=== PATIENT | female | born 1930 | race Caucasian/White ===

== ENCOUNTER 2017-06-28 18:15 | Emergency (ER) | payer MEDICARE ==
[~2017-06-28] VITALS: Ht 142.2 cm; Wt 62.3 kg
[~2017-06-28 18:15] MED LIST: AMIO200T57 PO; AMLO5TAB PO; APIX5TAB3 PO; CELE200C PO; CEPH500C5 PO; FURO-150 PO; OCUVITE PO; OMEP-84 PO
[2017-06-28 18:44] LABS: BASOPHILS # (AUTO) 0.2 X10'3 (0-0.2); BASOPHILS % (AUTO) 1.2 % (0-1); EOSINOPHILS # (AUTO) 0.5 X10'3 (0-0.9); EOSINOPHILS % (AUTO) 3.2 % (0-6); HEMATOCRIT 40.3 % (35.0-45.0); LYMPHOCYTES # (AUTO) 1.4 X10'3 (1.1-4.8); LYMPHOCYTES % (AUTO) 8.6 % (21-51); MEAN CORPUSCULAR HEMOGLOBIN 22.2 PG (27.0-31.0); MEAN CORPUSCULAR HGB CONC 32.2 % (33.0-36.5); MEAN PLATELET VOLUME 7.8 FL (7.4-10.4); MONOCYTES # (AUTO) 2.9 X10'3 (0-0.9); MONOCYTES % (AUTO) 17.7 % (2-12); NEUTROPHILS # (AUTO) 11.2 X10'3 (1.8-7.7); NEUTROPHILS % (AUTO) 69.3 % (42-75); PLATELET COUNT 467 X10'3 (140-440); RED BLOOD COUNT 5.84 X10'6 (4.20-5.60); RED CELL DISTRIBUTION WIDTH 22.6 % (11.5-14.5); WHITE BLOOD COUNT 16.2 X10'3 (4.5-11.0)
[2017-06-28 18:58] LABS: ALANINE AMINOTRANSFERASE 644 U/L (12-78); ALBUMIN 3.1 G/DL (3.4-5.0); ALBUMIN/GLOBULIN RATIO 0.9 (1.1-1.5); ALKALINE PHOSPHATASE 175 IU/L (46-116); ANION GAP 6 (8-16); ASPARTATE AMINO TRANSFERASE 718 U/L (10-37); BILIRUBIN,TOTAL 1.1 MG/DL (0.1-1.0); BLOOD UREA NITROGEN 17 MG/DL (7-18); BUN/CREATININE RATIO 12.7 (6.6-38.0); CALCIUM 8.7 MG/DL (8.5-10.1); CHLORIDE 91 MMOL/L (99-107); CREATININE 1.34 MG/DL (0.40-0.90); GLUCOSE 104 MG/DL (70-104); POTASSIUM 3.6 MMOL/L (3.5-5.1); SODIUM 126 MMOL/L (135-145); TOTAL CARBON DIOXIDE 29.1 MMOL/L (24-32); TOTAL PROTEIN 6.6 G/DL (6.4-8.2); eGFR 37 ML/MIN
[2017-06-28 20:50] LABS: PLATELET ESTIMATE INCREASED
[2017-06-28 20:51] LABS: ANISOCYTOSIS 3+; HYPOCHROMASIA 2+; LIPASE 291 U/L (73-393); MICROCYTOSIS 2+
[2017-06-28 20:52] LABS: BURR CELLS FEW; ELLIPTOCYTES FEW; SCHISTOCYTES FEW; TEAR DROP CELLS FEW
[2017-06-28 21:21] LABS: CLARITY,URINE Clear (Clear); COLOR,URINE Yellow (Yellow); GLUCOSE, URINE Negative (Neg); KETONES,URINE Negative (Neg); LEUKOCYTE ESTERASE ,URINE Trace (Neg); NITRITES, URINE Negative (Neg); OCCULT BLOOD,URINE Negative (Neg); PH,URINE 5.5 (4.8-8.0); PROTEIN,URINE Negative (Neg)
[2017-06-28 21:24] LABS: UA COLLECTION TYPE VOIDED
[2017-06-28 21:39] LABS: AMORPHOUS URATES 1+; BACTERIA,URINE 1+ /HPF (Neg); MUCUS STRANDS NONE SEEN /LPF (Neg); RBC,URINE NONE SEEN /HPF (0-2); SQUAMOUS EPITHELIAL CELL,UR FEW /LPF (FEW); WBC,URINE 0-4 /HPF (0-4)
[2017-06-28 22:45] VITALS: BP 132/62
== END 2017-06-29 00:21 | disposition left against medical advice (07) ==
LOC: ER 18:17
DX: D72.829 Elevated white blood cell count, unspecified (principal); E87.1 Hypo-osmolality and hyponatremia; L03.115 Cellulitis of right lower limb; R94.5 Abnormal results of liver function studies; R10.9 Unspecified abdominal pain; I48.91 Unspecified atrial fibrillation; I11.0 Hypertensive heart disease with heart failure; I50.9 Heart failure, unspecified; K21.9 Gastro-esophageal reflux disease without esophagitis; Z90.710 Acquired absence of both cervix and uterus; Z98.890 Other specified postprocedural states; Z79.899 Other long term (current) drug therapy
CPT/HCPCS: 36415; 71045; 74176; 80053; 81001; 83690; 84484; 85025; 87088; 93005; 99285

== ENCOUNTER 2017-09-23 17:03 | Inpatient (IN) | payer MEDICARE ==
[~2017-09-23] VITALS: Ht 149.9 cm; Wt 54.8 kg
[~2017-09-23 17:03] MED LIST changes: +AMIO200T40 PO; -AMIO200T57 PO
[2017-09-23 18:03] LABS: BASOPHILS # (AUTO) 0.1 X10'3 (0-0.2); BASOPHILS % (AUTO) 0.6 % (0-1); EOSINOPHILS # (AUTO) 0.3 X10'3 (0-0.9); EOSINOPHILS % (AUTO) 1.8 % (0-6); HEMATOCRIT 43.6 % (35.0-45.0); LYMPHOCYTES # (AUTO) 0.8 X10'3 (1.1-4.8); LYMPHOCYTES % (AUTO) 4.8 % (21-51); MEAN CORPUSCULAR HEMOGLOBIN 23.9 PG (27.0-31.0); MEAN CORPUSCULAR HGB CONC 32.2 % (33.0-36.5); MEAN PLATELET VOLUME 8.6 FL (7.4-10.4); MONOCYTES # (AUTO) 1.6 X10'3 (0-0.9); MONOCYTES % (AUTO) 9.2 % (2-12); NEUTROPHILS # (AUTO) 14.1 X10'3 (1.8-7.7); NEUTROPHILS % (AUTO) 83.6 % (42-75); PLATELET COUNT 396 X10'3 (140-440); RED BLOOD COUNT 5.88 X10'6 (4.20-5.60); WHITE BLOOD COUNT 16.9 X10'3 (4.5-11.0)
[2017-09-23 18:13] LABS: ALANINE AMINOTRANSFERASE 217 U/L (12-78); ALBUMIN/GLOBULIN RATIO 0.8 (1.1-1.5); ALKALINE PHOSPHATASE 93 IU/L (46-116); ANION GAP 4 (8-16); ASPARTATE AMINO TRANSFERASE 285 U/L (10-37); BILIRUBIN,TOTAL 1.2 MG/DL (0.1-1.0); BLOOD UREA NITROGEN 16 MG/DL (7-18); BUN/CREATININE RATIO 18.2 (6.6-38.0); CALCIUM 8.3 MG/DL (8.5-10.1); CHLORIDE 82 MMOL/L (99-107); CREATININE 0.88 MG/DL (0.40-0.90); GLUCOSE 95 MG/DL (70-104); LIPASE 133 U/L (73-393); TOTAL CARBON DIOXIDE 30.6 MMOL/L (24-32); TOTAL PROTEIN 6.6 G/DL (6.4-8.2); eGFR 61 ML/MIN
[2017-09-23 18:19] LABS: SODIUM 117 MMOL/L (135-145)
[2017-09-23 18:32] LABS: TROPONIN I < 0.04 NG/ML (0.0-0.05)
[2017-09-23] MEDS ORDERED: potassium Cl 20 mEq SR tablet PO STA (18:36)
[2017-09-23] MEDS ORDERED: normal saline 1000ml 1,000 ML IV ONE (18:40)
[2017-09-23] MEDS ORDERED: potassium Cl oral solution 20 MEQ/15 ML PO ONE (18:55)
[2017-09-23 19:13] LABS: MAGNESIUM 1.3 MG/DL (1.5-2.4); PHOSPHORUS 2.7 MG/DL (2.3-4.5)
[2017-09-23 21:40] LABS: CLARITY,URINE CLEAR (Clear); COLOR,URINE YELLOW (Yellow); GLUCOSE, URINE NEGATIVE (Neg); KETONES,URINE NEGATIVE (Neg); LEUKOCYTE ESTERASE ,URINE TRACE (Neg); NITRITES, URINE NEGATIVE (Neg); OCCULT BLOOD,URINE TRACE-INTACT (Neg); PROTEIN,URINE NEGATIVE (Neg); UA COLLECTION TYPE CLN CATCH MIDSTREAM
[2017-09-23 21:46] LABS: BACTERIA,URINE NONE SEEN /HPF (Neg); SQUAMOUS EPITHELIAL CELL,UR NONE SEEN /LPF (FEW); WBC,URINE 0-4 /HPF (0-4)
[2017-09-24] MEDS ORDERED: HYDR12.5 PO (00:20)
[2017-09-24] MEDS ORDERED: POTA10TA19 PO (00:20)
[2017-09-24] MEDS ORDERED: ASPI-1265 PO (00:20)
[2017-09-24] MEDS: magnesium 1gm/100ml D5W IVPB 100 ML IV SCH ×2 (00:33→01:25)
[2017-09-24] MEDS ORDERED: levoFLOXACIN-Levaquin 750MG/D5 150 ML IV STA (01:10)
[2017-09-24] MEDS ORDERED: ondansetron/PF 4mg/2ml inj IV PRN (01:15)
[2017-09-24] MEDS ORDERED: magnesium hydroxide 30ml (MOM) UD suspension PO PRN (01:15)
[2017-09-24] MEDS ORDERED: mag hydrox/Alum hydrox/simeth 30ml oral suspension PO PRN (01:15)
[2017-09-24] MEDS ORDERED: potassium Cl 20 mEq SR tablet PO PRN (01:20)
[2017-09-24] MEDS ORDERED: magnesium oxide 400mg tablet PO ONE (01:20)
[2017-09-24] MEDS ORDERED: potassium Cl 40MEQ/NS 500ml 500 ML IV PRN ×2 (01:20)
[2017-09-24 01:58] LABS: ALANINE AMINOTRANSFERASE 209 U/L (12-78); ALBUMIN 2.7 G/DL (3.4-5.0); ALBUMIN/GLOBULIN RATIO 0.8 (1.1-1.5); ALKALINE PHOSPHATASE 91 IU/L (46-116); ANION GAP 7 (8-16); ASPARTATE AMINO TRANSFERASE 279 U/L (10-37); BILIRUBIN,TOTAL 1.2 MG/DL (0.1-1.0); BLOOD UREA NITROGEN 11 MG/DL (7-18); BUN/CREATININE RATIO 15.3 (6.6-38.0); CALCIUM 7.8 MG/DL (8.5-10.1); CHLORIDE 87 MMOL/L (99-107); CREATININE 0.72 MG/DL (0.40-0.90); GLUCOSE 95 MG/DL (70-104); POTASSIUM 3.1 MMOL/L (3.5-5.1); TOTAL CARBON DIOXIDE 26.3 MMOL/L (24-32); eGFR 76 ML/MIN
[2017-09-24 02:00] VITALS: BP 119/59
[2017-09-24 02:00] LABS: SODIUM 120 MMOL/L (135-145)
[2017-09-24] MEDS: normal saline 1000ml 1,000 ML IV SCH ×3 (03:35→23:35)
[2017-09-24 06:00] VITALS: BP 145/62
[2017-09-24 06:24] LABS: ALANINE AMINOTRANSFERASE 221 U/L (12-78); ALBUMIN 2.6 G/DL (3.4-5.0); ALBUMIN/GLOBULIN RATIO 0.8 (1.1-1.5); ALKALINE PHOSPHATASE 92 IU/L (46-116); ANION GAP 6 (8-16); ASPARTATE AMINO TRANSFERASE 294 U/L (10-37); BILIRUBIN,DIRECT 0.5 MG/DL (0-0.3); BILIRUBIN,TOTAL 1.2 MG/DL (0.1-1.0); BLOOD UREA NITROGEN 11 MG/DL (7-18); BUN/CREATININE RATIO 13.9 (6.6-38.0); CHLORIDE 86 MMOL/L (99-107); CREATININE 0.79 MG/DL (0.40-0.90); GLUCOSE 100 MG/DL (70-104); MAGNESIUM 1.8 MG/DL (1.5-2.4); TOTAL CARBON DIOXIDE 27.7 MMOL/L (24-32); eGFR 69 ML/MIN
[2017-09-24 06:37] LABS: POTASSIUM 2.8 MMOL/L (3.5-5.1); SODIUM 120 MMOL/L (135-145)
[2017-09-24] MEDS: amLODIPine 5mg tablet PO SCH ×2 (08:00→10:27)
[2017-09-24] MEDS: aspirin 81mg tab.chew PO SCH ×2 (08:00→10:27)
[2017-09-24] MEDS: pantoprazole 40mg Tablet.DR PO SCH ×2 (08:00→10:28)
[2017-09-24] MEDS: amiodarone 200mg tablet PO SCH ×3 (08:00→20:20)
[2017-09-24] MEDS: potassium Cl 20 mEq SR tablet PO PRN (10:28)
[2017-09-24 11:00] VITALS: BP 153/61
[2017-09-24] MEDS: sodium chloride 1gm tablet PO SCH ×2 (13:51→20:20)
[2017-09-24 15:00] VITALS: BP 153/63
[2017-09-24 18:00] VITALS: BP 115/56
[2017-09-24 22:00] VITALS: BP 152/46
[2017-09-25] MEDS: potassium Cl 20 mEq SR tablet PO PRN (00:14)
[2017-09-25 02:00] VITALS: BP 143/65
[2017-09-25 05:45] LABS: BASOPHILS % (AUTO) 0 % (0-1); EOSINOPHILS # (AUTO) 0.1 X10'3 (0-0.9); EOSINOPHILS % (AUTO) 0.5 % (0-6); HEMATOCRIT 42.2 % (35.0-45.0); HEMOGLOBIN 13.6 g/dl (12.0-16.0); LYMPHOCYTES # (AUTO) 1.1 X10'3 (1.1-4.8); LYMPHOCYTES % (AUTO) 5.9 % (21-51); MEAN CORPUSCULAR HEMOGLOBIN 24.2 PG (27.0-31.0); MEAN CORPUSCULAR HGB CONC 32.3 % (33.0-36.5); MEAN CORPUSCULAR VOLUME 74.8 FL (78-98); MEAN PLATELET VOLUME 8.2 FL (7.4-10.4); MONOCYTES # (AUTO) 2.1 X10'3 (0-0.9); MONOCYTES % (AUTO) 11.1 % (2-12); NEUTROPHILS # (AUTO) 15.5 X10'3 (1.8-7.7); NEUTROPHILS % (AUTO) 82.5 % (42-75); PLATELET COUNT 428 X10'3 (140-440); RED BLOOD COUNT 5.64 X10'6 (4.20-5.60); RED CELL DISTRIBUTION WIDTH 19.1 % (11.5-14.5); WHITE BLOOD COUNT 18.8 X10'3 (4.5-11.0)
[2017-09-25 06:17] LABS: ALANINE AMINOTRANSFERASE 305 U/L (12-78); ALBUMIN 2.6 G/DL (3.4-5.0); ALBUMIN/GLOBULIN RATIO 0.8 (1.1-1.5); ALKALINE PHOSPHATASE 89 IU/L (46-116); ANION GAP 5 (8-16); ASPARTATE AMINO TRANSFERASE 415 U/L (10-37); BILIRUBIN,TOTAL 1.5 MG/DL (0.1-1.0); BLOOD UREA NITROGEN 8 MG/DL (7-18); BUN/CREATININE RATIO 11.6 (6.6-38.0); CALCIUM 8.4 MG/DL (8.5-10.1); CHLORIDE 94 MMOL/L (99-107); CREATININE 0.69 MG/DL (0.40-0.90); GLUCOSE 67 MG/DL (70-104); PHOSPHORUS 2.2 MG/DL (2.3-4.5); SODIUM 125 MMOL/L (135-145); TOTAL CARBON DIOXIDE 26.5 MMOL/L (24-32); TOTAL PROTEIN 5.9 G/DL (6.4-8.2); eGFR 80 ML/MIN
[2017-09-25] MEDS: amiodarone 200mg tablet PO SCH (07:52)
[2017-09-25] MEDS: aspirin 81mg tab.chew PO SCH (07:52)
[2017-09-25] MEDS: pantoprazole 40mg Tablet.DR PO SCH (07:52)
[2017-09-25] MEDS: amLODIPine 5mg tablet PO SCH (07:52)
[2017-09-25] MEDS: sodium chloride 1gm tablet PO SCH (07:52)
[2017-09-25] MEDS: normal saline 1000ml 1,000 ML IV SCH (09:35)
== END 2017-09-25 11:25 | disposition left against medical advice (07) | DRG 640 ==
LOC: ER 17:04 → ED HOLD 09-24 01:12 → PCU 3S 09-24 01:56
PROVIDERS: ADMIT Internal Medicine; ATTEND Family Medicine
DX: E87.1 Hypo-osmolality and hyponatremia (principal); J18.9 Pneumonia, unspecified organism; J98.11 Atelectasis; I50.9 Heart failure, unspecified; E11.9 Type 2 diabetes mellitus without complications; I11.0 Hypertensive heart disease with heart failure; R79.89 Other specified abnormal findings of blood chemistry; E83.42 Hypomagnesemia; I48.91 Unspecified atrial fibrillation; E86.0 Dehydration; K21.9 Gastro-esophageal reflux disease without esophagitis; E87.6 Hypokalemia; Z53.21 Procedure and treatment not carried out due to patient leaving prior to being seen by health care provider; I25.2 Old myocardial infarction; Z86.73 Personal history of transient ischemic attack (TIA), and cerebral infarction without residual deficits; Z90.710 Acquired absence of both cervix and uterus; Z88.1 Allergy status to other antibiotic agents; Z88.8 Allergy status to other drugs, medicaments and biological substances
CPT/HCPCS: 36415; 70450; 71045; 74176; 76700; 80048; 80053; 80076; 81001; 83605; 83690; 83735; 84100; 84484; 85025; 87040; 87070; 87088; 93005; 99285; J1956; J2405; J3480; J7030

== ENCOUNTER 2017-09-30 15:09 | Inpatient (IN) | payer MEDICARE ==
[~2017-09-30] VITALS: Ht 144.8 cm; Wt 50.0 kg
[~2017-09-30 15:09] MED LIST changes: -APIX5TAB3 PO; +ASPI-1265 PO; -CEPH500C5 PO; +HYDR12.5 PO; +POTA10TA19 PO
[2017-09-30] MEDS ORDERED: ibuprofen 200mg tablet PO ONE (16:25)
[2017-09-30 16:31] LABS: HEMOGLOBIN 13.6 g/dl (12.0-16.0); MEAN CORPUSCULAR HEMOGLOBIN 24.6 PG (27.0-31.0)
[2017-09-30 16:34] LABS: HEMATOCRIT 41.6 % (35.0-45.0); MEAN CORPUSCULAR HGB CONC 32.8 % (33.0-36.5); MEAN CORPUSCULAR VOLUME 75.2 FL (78-98); MEAN PLATELET VOLUME 7.3 FL (7.4-10.4); PLATELET COUNT 484 X10'3 (140-440); RED BLOOD COUNT 5.53 X10'6 (4.20-5.60); RED CELL DISTRIBUTION WIDTH 19.2 % (11.5-14.5); WHITE BLOOD COUNT 20.6 X10'3 (4.5-11.0)
[2017-09-30 16:46] LABS: ALANINE AMINOTRANSFERASE 447 U/L (12-78); ALBUMIN 2.8 G/DL (3.4-5.0); ALBUMIN/GLOBULIN RATIO 0.9 (1.1-1.5); ALKALINE PHOSPHATASE 141 IU/L (46-116); ANION GAP 8 (8-16); ASPARTATE AMINO TRANSFERASE 526 U/L (10-37); BILIRUBIN,TOTAL 3.6 MG/DL (0.1-1.0); BLOOD UREA NITROGEN 15 MG/DL (7-18); BUN/CREATININE RATIO 19.7 (6.6-38.0); CALCIUM 8.4 MG/DL (8.5-10.1); CHLORIDE 88 MMOL/L (99-107); CREATININE 0.76 MG/DL (0.40-0.90); GLUCOSE 91 MG/DL (70-104); POTASSIUM 3.2 MMOL/L (3.5-5.1); SODIUM 122 MMOL/L (135-145); TOTAL CARBON DIOXIDE 25.7 MMOL/L (24-32); TOTAL PROTEIN 5.9 G/DL (6.4-8.2); eGFR 72 ML/MIN
[2017-09-30 16:53] LABS: MAGNESIUM 1.3 MG/DL (1.5-2.4)
[2017-09-30] MEDS ORDERED: normal saline 1000ML IV soln IVB ONE (16:55)
[2017-09-30 17:05] LABS: NUCLEATED RED BLOOD CELLS 1 /100WBC (0-0); TOTAL CELLS COUNTED 100
[2017-09-30 17:06] LABS: PLATELET ESTIMATE INCREASED
[2017-09-30 17:07] LABS: ANISOCYTOSIS 2+; HYPOCHROMASIA 2+
[2017-09-30 17:08] LABS: BURR CELLS 3+
[2017-09-30 17:09] LABS: GIANT PLATELET FEW; LARGE PLATELETS FEW
[2017-09-30 18:31] LABS: CLARITY,URINE SLIGHTLY CLOUDY (Clear); COLOR,URINE YELLOW (Yellow); GLUCOSE, URINE NEGATIVE (Neg); KETONES,URINE 15 mg/dl (Neg); LEUKOCYTE ESTERASE ,URINE NEGATIVE (Neg); NITRITES, URINE NEGATIVE (Neg); OCCULT BLOOD,URINE NEGATIVE (Neg); PH,URINE 5.5 (4.8-8.0); PROTEIN,URINE NEGATIVE (Neg); UROBILINOGEN,URINE >=8.0 E.U/dL (0.2-1.0)
[2017-09-30 18:36] LABS: UA COLLECTION TYPE FOLEY CATH
[2017-09-30 18:38] LABS: MUCUS STRANDS FEW /LPF (Neg)
[2017-09-30 18:39] LABS: AMORPHOUS URATES 2+
[2017-09-30 18:42] LABS: BACTERIA,URINE NONE SEEN /HPF (Neg); RBC,URINE NONE SEEN /HPF (0-2); RENAL CELLS, URINE FEW /HPF; SQUAMOUS EPITHELIAL CELL,UR FEW /LPF (FEW); WBC,URINE 0-4 /HPF (0-4)
[2017-09-30] MEDS: magnesium 1gm/100ml D5W IVPB 100 ML IV SCH ×2 (19:10→20:19)
[2017-09-30] MEDS ORDERED: CefTRIAXone 2gm/D5W 50ml 50 ML IV ONE (19:20)
[2017-09-30] MEDS ORDERED: potassium 10mEq/100ml NS w/LIDOcaine (10mg/bag) IV ONE (19:20)
[2017-09-30] MEDS ORDERED: HYDROCHLOROTHIAZIDE 12.5 MG (19:28)
[2017-09-30] MEDS ORDERED: AMIODARONE HCL 200 MG TABLET (19:28)
[2017-09-30] MEDS ORDERED: mag hydrox/Alum hydrox/simeth 30ml oral suspension PO PRN (19:30)
[2017-09-30] MEDS ORDERED: magnesium 4gm in 100ml NS 100 ML IV PRN (19:30)
[2017-09-30] MEDS ORDERED: acetaminophen 325mg tablet PO PRN (19:30)
[2017-09-30] MEDS ORDERED: potassium Cl 20 mEq SR tablet PO PRN (19:30)
[2017-09-30] MEDS ORDERED: ondansetron/PF 4mg/2ml inj IV PRN (19:30)
[2017-09-30] MEDS ORDERED: magnesium 1gm/100ml D5W IVPB 100 ML IV PRN (19:30)
[2017-09-30] MEDS ORDERED: potassium Cl 40MEQ/NS 500ml 500 ML IV PRN ×2 (19:30)
[2017-09-30] MEDS ORDERED: magnesium hydroxide 30ml (MOM) UD suspension PO PRN (19:30)
[2017-09-30] MEDS ORDERED: magnesium Cl slow-release 64mg tablet PO PRN (19:30)
[2017-09-30] MEDS ORDERED: iohexol 300mg/ml 100ml inj. ONE (19:41)
[2017-09-30] MEDS: amiodarone 200mg tablet PO SCH (20:35)
[2017-09-30] MEDS: enoxaparin 40mg/0.4ml syringe SUBCUT SCH (20:35)
[2017-09-30] MEDS ORDERED: temazepam 15mg capsule PO PRN (21:00)
[2017-09-30 22:05] VITALS: BP 132/50
[2017-09-30] MEDS: metroNIDAZOLE-Flagyl 250mg/NS 50 ML IV SCH ×2 (22:44→23:24)
[2017-09-30] MEDS: levoFLOXACIN-Levaquin 250mg/D5 50 ML IV SCH (23:31)
[2017-10-01] VITALS: BP 132/47
[2017-10-01 04:22] LABS: HEMATOCRIT 37.2 % (35.0-45.0); MEAN CORPUSCULAR HEMOGLOBIN 24.3 PG (27.0-31.0); MEAN CORPUSCULAR HGB CONC 32.4 % (33.0-36.5); MEAN PLATELET VOLUME 7.2 FL (7.4-10.4); PLATELET COUNT 445 X10'3 (140-440); RED BLOOD COUNT 4.95 X10'6 (4.20-5.60); RED CELL DISTRIBUTION WIDTH 19.6 % (11.5-14.5); WHITE BLOOD COUNT 16.7 X10'3 (4.5-11.0)
[2017-10-01 04:44] LABS: ALANINE AMINOTRANSFERASE 335 U/L (12-78); ALBUMIN 2.2 G/DL (3.4-5.0); ALBUMIN/GLOBULIN RATIO 0.8 (1.1-1.5); ALKALINE PHOSPHATASE 106 IU/L (46-116); ANION GAP 6 (8-16); ASPARTATE AMINO TRANSFERASE 386 U/L (10-37); BILIRUBIN,TOTAL 2.7 MG/DL (0.1-1.0); BLOOD UREA NITROGEN 9 MG/DL (7-18); BUN/CREATININE RATIO 14.8 (6.6-38.0); CALCIUM 7.5 MG/DL (8.5-10.1); CHLORIDE 93 MMOL/L (99-107); CREATININE 0.61 MG/DL (0.40-0.90); GLUCOSE 83 MG/DL (70-104); MAGNESIUM 1.7 MG/DL (1.5-2.4); SODIUM 125 MMOL/L (135-145); TOTAL CARBON DIOXIDE 26.1 MMOL/L (24-32); TOTAL PROTEIN 4.8 G/DL (6.4-8.2); eGFR > 90 ML/MIN
[2017-10-01 04:46] LABS: TOTAL CELLS COUNTED 100
[2017-10-01 04:47] LABS: ANISOCYTOSIS 2+; MICROCYTOSIS 1+; PLATELET ESTIMATE INCREASED
[2017-10-01] MEDS: potassium Cl 20 mEq SR tablet PO PRN ×2 (05:43→11:14)
[2017-10-01 08:00] VITALS: BP 148/61
[2017-10-01] MEDS ORDERED: aspirin 81mg tab.chew PO SCH (08:00)
[2017-10-01] MEDS ORDERED: CefTRIAXone 2gm/D5W 50ml 50 ML IV SCH (08:00)
[2017-10-01] MEDS ORDERED: non-formulary drug (Omeprazole* (Prilosec*) 20 MG) PO SCH (08:00)
[2017-10-01] MEDS ORDERED: celeCOXIB 100mg capsule PO SCH (08:00)
[2017-10-01] MEDS ORDERED: CELECOXIB 200 MG PO SCH (08:00)
[2017-10-01] MEDS ORDERED: non-formulary drug (Amlodipine Besylate 1 TABLET) PO SCH (08:00)
[2017-10-01] MEDS ORDERED: beta-carotene(A) w/C & E + minerals tab PO SCH (08:00)
[2017-10-01] MEDS: K and/or MAG REPLACEMENT MC SCH (08:12)
[2017-10-01] MEDS: pantoprazole 40mg Tablet.DR PO SCH (08:19)
[2017-10-01] MEDS: amLODIPine 5mg tablet PO SCH (08:19)
[2017-10-01] MEDS: amiodarone 200mg tablet PO SCH ×2 (08:19→19:44)
[2017-10-01] MEDS: enoxaparin 40mg/0.4ml syringe SUBCUT SCH (08:20)
[2017-10-01] MEDS: metroNIDAZOLE-Flagyl 250mg/NS 50 ML IV SCH ×2 (10:14→16:42)
[2017-10-01] MEDS: levoFLOXACIN-Levaquin 250mg/D5 50 ML IV SCH (11:13)
[2017-10-01 12:26] VITALS: BP 114/51
[2017-10-01 18:00] VITALS: BP 130/55
[2017-10-01] MEDS: lactobacillus rhamnosus 10,000 MMU CELLS/CAPSULE PO SCH (19:44)
[2017-10-02] VITALS: BP 143/86
[2017-10-02] MEDS: metroNIDAZOLE-Flagyl 250mg/NS 50 ML IV SCH ×2 (00:13→08:46)
[2017-10-02 07:00] VITALS: BP 125/58
[2017-10-02] MEDS: K and/or MAG REPLACEMENT MC SCH (08:00)
[2017-10-02] MEDS: lactobacillus rhamnosus 10,000 MMU CELLS/CAPSULE PO SCH ×2 (08:46→20:29)
[2017-10-02] MEDS: amLODIPine 5mg tablet PO SCH (08:46)
[2017-10-02] MEDS: amiodarone 200mg tablet PO SCH ×2 (08:46→20:29)
[2017-10-02] MEDS: pantoprazole 40mg Tablet.DR PO SCH (08:46)
[2017-10-02 18:00] VITALS: BP 122/57
[2017-10-03] MEDS: K and/or MAG REPLACEMENT MC SCH (08:00)
[2017-10-03] MEDS: amiodarone 200mg tablet PO SCH (08:55)
[2017-10-03] MEDS: pantoprazole 40mg Tablet.DR PO SCH (08:55)
[2017-10-03] MEDS: lactobacillus rhamnosus 10,000 MMU CELLS/CAPSULE PO SCH (08:55)
[2017-10-03] MEDS: amLODIPine 5mg tablet PO SCH (08:55)
[2017-10-03] MEDS ORDERED: METR250T4 PO (12:40)
[2017-10-03] MEDS ORDERED: LEVO500T2 PO (12:40)
== END 2017-10-03 14:44 | disposition home or self-care (01) | DRG 393 ==
LOC: ER 15:15 → ED HOLD 19:28 → EDBEDREQ 21:15 → SUR 3N 22:00
PROVIDERS: ADMIT Hospitalist; ATTEND Internal Medicine
PROC: BW251ZZ Computerized Tomography (CT Scan) of Chest, Abdomen and Pelvis using Low Osmolar Contrast (ICD-10-PCS; principal; 2017-09-30)
DX: K63.1 Perforation of intestine (nontraumatic) (principal); E43 Unspecified severe protein-calorie malnutrition; E87.1 Hypo-osmolality and hyponatremia; R62.7 Adult failure to thrive; D72.829 Elevated white blood cell count, unspecified; E83.42 Hypomagnesemia; E87.6 Hypokalemia; I11.0 Hypertensive heart disease with heart failure; I48.2 Chronic atrial fibrillation; I50.9 Heart failure, unspecified; K21.9 Gastro-esophageal reflux disease without esophagitis; M19.90 Unspecified osteoarthritis, unspecified site; M54.9 Dorsalgia, unspecified; W18.39XA Other fall on same level, initial encounter; R74.0 Nonspecific elevation of levels of transaminase and lactic acid dehydrogenase [LDH]; R74.8 Abnormal levels of other serum enzymes; Z51.5 Encounter for palliative care; Z66 Do not resuscitate; Z90.710 Acquired absence of both cervix and uterus; Z88.1 Allergy status to other antibiotic agents; Z88.6 Allergy status to analgesic agent; Z88.8 Allergy status to other drugs, medicaments and biological substances; Z79.82 Long term (current) use of aspirin; Z79.899 Other long term (current) drug therapy; Z83.3 Family history of diabetes mellitus; Z82.49 Family history of ischemic heart disease and other diseases of the circulatory system; Z82.3 Family history of stroke; Y93.89 Activity, other specified; Y92.89 Other specified places as the place of occurrence of the external cause; Y99.8 Other external cause status; Z68.23 Body mass index [BMI] 23.0-23.9, adult
CPT/HCPCS: 36415; 71045; 71260; 72070; 72100; 74177; 80053; 81001; 83735; 83880; 83930; 84439; 84443; 85025; 87070; 93005; 96360; 97110; 97116; 97161; 97530; 99285; A4315; A6212; A6258; A6449; J0696; J1650; J1956; J2405; J3480; J3490; J7030; Q9967